=== PATIENT | male | born 1955 | race Hispanic/Latino ===

== ENCOUNTER 2020-05-16 08:30 | Emergency (ER) | payer SELFPAY ==
[2020-05-16] MEDS ORDERED: Acetaminophen 500 MG TAB ONE (08:55)
[2020-05-16 09:24] LABS: #Eosinphils 0.1 thou/uL (0.0-0.7); #Lymphocytes 1.9 thou/uL (1.20-3.40); #Monocytes 0.9 thou/uL (0.11-0.59); #Neutrophils 8.1 thou/uL (1.40-6.50); %Basophils 0.4 % (0.0-1.0); %Eosinophils 0.9 % (0.0-10.0); %Lymphocytes 17.3 % (21.0-51.0); %Neutrophils 73.5 % (42.0-75.0); Hemoglobin 15.1 g/dL (14.0-18.0); Mean Corpuscular HGB CONC 33.9 g/dL (32.0-36.0); Mean Corpuscular Volume 91.3 fL (78.0-98.0); Mean Platelet Volume 9.3 fL (7.4-10.4); Platelet Count 231 thou/uL (130-400); RBC Distribution Width 11.4 % (11.5-14.5); Red Blood Cell (RBC) Count 4.88 mill/uL (4.70-6.10)
[2020-05-16 09:49] LABS: ALT (SGPT) 12 U/L (8-55); AST (SGOT) 11 U/L (5-34); Albumin 4.1 g/dL (3.4-4.8); Alkaline Phosphatase 115 U/L (40-110); Anion Gap 12 mmol/L (10-20); BUN (Urea Nitrogen) 10 mg/dL (8.4-25.7); Bilirubin, Total 0.4 mg/dL (0.2-1.2); Calc. Creatinine Clearance 0 mL/min (70-130); Carbon Dioxide 25 mmol/L (23-31); Chloride 98 mmol/L (98-107); Estimated GFR-MDRD Greater than 90; Glucose 260 mg/dL (80-115); Lipase 162 U/L (8-78); Potassium 4.2 mmol/L (3.5-5.1); Protein, Total 7.1 g/dL (5.8-8.1); Sodium 131 mmol/L (136-145)
--- NOTE | 2020-05-16 10:26 | CT ---
CT ABDOMEN AND PELVIS WITH IV CONTRAST: INDICATION: Abdominal pain. FINDINGS: Lung bases clear. Liver and spleen appear unremarkable. Pancreas is unremarkable. Stomach and duodenum unremarkable. Adrenal glands normal. Kidneys unremarkable. Small bowel loops show nonspecific distention. The mid and distal small bowel shows mild fluid-fille d distention without dilatation. Appendix appears normal. The colon is unremarkable with moderate v olume stool throughout the colon. The aorta shows atherosclerotic changes without aneurysm. Images through the pelvis show mild prosta tic hypertrophy. No mass or adenopathy. Osseous structures unremarkable with degenerative spine john nges. Small umbilical hernia. IMPRESSION: Nonspecific fluid-filled distention of mid and distal small bowel loops without evidence of dilatatio n or obstruction. No acute intraabdominal process identified. POS: AGW
[2020-05-16 10:57] LABS: Bacteria/HPF None Seen HPF (None Seen); Bilirubin Negative (Negative); Blood, Urine Negative (Negative); Clarity Clear (Clear); Glucose, Urine (Dipstick) Greater than 1000 mg/dL (Negative); Ketone, Urine Negative (Negative); Leukocyte Negative Leu/uL (Negative); Mucous/LPF Rare LPF (<2+); Nitrite Negative (Negative); Protein, Urine (Dipstick) 30 mg/dL (Neg-Trace); RBC/HPF 0-3 HPF (0-3); Specific Gravity, Urine 1.034 (1.002-1.036); Squamous Epithelial 0-3 HPF (0-3); WBC/HPF 0-3 HPF (0-3)
[2020-05-16] MEDS ORDERED: Iopamidol 370 76% 100 ML VIAL ONE (16:11)
--- NOTE | 2020-05-19 12:54 | EKG ---
Test Reason : Blood Pressure : / mmHG Vent. Rate : 075 BPM Atrial Rate : 075 BPM P-R Int : 142 ms QRS Dur : 084 ms QT Int : 376 ms P-R-T Axes : 038 -61 018 degrees QTc Int : 419 ms Normal sinus rhythm Pulmonary disease pattern Left anterior fascicular block Abnormal ECG Confirmed by JENNIFER VALDEZ ([id number]), fan mail editor PÉREZ FERREIRA ([id number]) on 05/19/2020 12:54:05 PM Referred By: Confirmed By:JENNIFER Lyons
== END 2020-05-16 12:19 | disposition home or self-care (01) ==
LOC: ERS 08:30
DX: R10.11 Right upper quadrant pain (principal); R10.31 Right lower quadrant pain; E11.9 Type 2 diabetes mellitus without complications; E03.9 Hypothyroidism, unspecified; F17.200 Nicotine dependence, unspecified, uncomplicated; Z79.899 Other long term (current) drug therapy; Z79.84 Long term (current) use of oral hypoglycemic drugs
CPT/HCPCS: 36416; 74177; 80053; 81003; 81015; 83690; 84484; 85025; 93005; 96360; 96361; Q9967

== ENCOUNTER 2025-04-03 10:06 | Inpatient (IN) | payer MEDICARE, OTHER, SELFPAY ==
[2025-04-03 12:35] LABS: #Basophils Less than 0.03 10x3/uL (0.0-0.2); #Eosinophils 0.07 10x3/uL (0.0-0.7); #Monocytes 0.99 10x3/uL (0.11-0.59); #Neutrophils 9.36 10x3/uL (1.40-6.50); %Basophils 0.2 % (0.0-1.0); %Eosinophils 0.6 % (0.0-10.0); %Lymphocytes 17.0 % (21.0-51.0); %Monocytes 7.8 % (0.0-10.0); %Neutrophils 74.2 % (42.0-75.0); Hematocrit 32.9 % (42.0-52.0); Hemoglobin 11.3 g/dL (14.0-18.0); Mean Corpuscular Hemoglobin 29.4 pg (27.0-31.0); Mean Corpuscular Volume 85.5 fL (78.0-98.0); Platelet Count 427 10x3/uL (130-400); Red Blood Cell (RBC) Count 3.85 mill/uL (4.70-6.10); White Blood Cell (WBC) Count 12.62 10x3/uL (4.8-10.8)
[2025-04-03] MEDS ORDERED: Iopamidol-370 76% 500 ML MDV (1 ML CHARGE) ONE (12:55)
[2025-04-03 12:59] LABS: ALT (SGPT) 12 U/L (Less than 45); AST (SGOT) 20 U/L (11-34); Albumin 3.5 g/dL (3.1-4.5); Alkaline Phosphatase 101 U/L (40-110); Anion Gap 14 mmol/L (10-20); BUN (Urea Nitrogen) 10 mg/dL (8.4-25.7); Bilirubin, Total 0.3 mg/dL (0.3-1.2); Calc. Creatinine Clearance 0 mL/min (70-130); Calcium 9.4 mg/dL (7.8-10.44); Carbon Dioxide 26 mmol/L (23-31); Chloride 95 mmol/L (98-107); Globulin 4.4 g/dL (2.4-3.5); Glucose 248 mg/dL (80-115); Potassium 3.8 mmol/L (3.5-5.1); Sodium 131 mmol/L (136-145)
[2025-04-03] MEDS ORDERED: Ketorolac Tromethamine 30 MG (1 mL) VIAL ONE (14:59)
[2025-04-03] MEDS ORDERED: Vancomycin 1 GM/200 ML (FROZEN) BAG ONE (16:32)
[2025-04-03] MEDS ORDERED: Calcium Carbonate 500 MG ChewTAB PO PRN (22:07)
[2025-04-03] MEDS ORDERED: Ondansetron PF 4 MG/2 ML Vial IVP PRN (22:07)
[2025-04-03] MEDS ORDERED: Dextrose 50% Abboject 50 ML SYRINGE SLOW IVP PRN (22:08)
[2025-04-03] MEDS ORDERED: Glucagon 1 MG/ML KIT IM PRN (22:08)
[2025-04-03] MEDS ORDERED: Electrolyte Replacement Protocol 1 EACH FS PRN (22:15)
[2025-04-03 22:22] VITALS: BMI 26.6
[2025-04-03] MEDS: Acetaminophen 325 MG TAB PO PRN (23:45)
[2025-04-04] MEDS: Ketorolac Tromethamine 30 MG (1 mL) VIAL IVP PRN ×2 (03:46→17:33)
[2025-04-04 06:03] LABS: #Basophils 0.05 10x3/uL (0.0-0.2); #Eosinophils 0.28 10x3/uL (0.0-0.7); #Monocytes 1.13 10x3/uL (0.11-0.59); #Neutrophils 7.91 10x3/uL (1.40-6.50); %Basophils 0.4 % (0.0-1.0); %Eosinophils 2.4 % (0.0-10.0); %Lymphocytes 18.9 % (21.0-51.0); %Monocytes 9.7 % (0.0-10.0); %Neutrophils 68.3 % (42.0-75.0); Hematocrit 29.8 % (42.0-52.0); Hemoglobin 10.2 g/dL (14.0-18.0); Mean Corpuscular Hemoglobin 28.8 pg (27.0-31.0); Mean Corpuscular Volume 84.2 fL (78.0-98.0); Platelet Count 389 10x3/uL (130-400); Red Blood Cell (RBC) Count 3.54 mill/uL (4.70-6.10); White Blood Cell (WBC) Count 11.59 10x3/uL (4.8-10.8)
[2025-04-04 06:09] LABS: ALT (SGPT) 12 U/L (Less than 45); AST (SGOT) 19 U/L (11-34); Albumin 3.1 g/dL (3.1-4.5); Alkaline Phosphatase 88 U/L (40-110); Anion Gap 11 mmol/L (10-20); BUN (Urea Nitrogen) 10 mg/dL (8.4-25.7); Bilirubin, Total 0.2 mg/dL (0.3-1.2); Calc. Creatinine Clearance 110 mL/min (70-130); Calcium 9.0 mg/dL (7.8-10.44); Carbon Dioxide 27 mmol/L (23-31); Chloride 97 mmol/L (98-107); Globulin 3.7 g/dL (2.4-3.5); Glucose 156 mg/dL (80-115); Potassium 3.4 mmol/L (3.5-5.1); Sodium 132 mmol/L (136-145)
[2025-04-04 06:24] LABS: Free T4 (Free Thyroxine) 1.09 ng/dL (0.70-1.48); Thyroid Stimulating Hormone 1.0421 uIU/mL (0.35-4.94)
[2025-04-04] MEDS: HYDROcodone/Acetaminophen 5/325 mg Tablet PO PRN (12:35)
[2025-04-04] MEDS: Artificial Tear Ophth Sol 15 ML BOT EA EYE PRN (17:26)
[2025-04-04] MEDS: Gabapentin 300 MG CAP PO SCH (20:56)
[2025-04-05 07:10] LABS: Anion Gap 14 mmol/L (10-20); BUN (Urea Nitrogen) 13 mg/dL (8.4-25.7); Calc. Creatinine Clearance 94 mL/min (70-130); Calcium 9.4 mg/dL (7.8-10.44); Carbon Dioxide 24 mmol/L (23-31); Chloride 96 mmol/L (98-107); Glucose 293 mg/dL (80-115); Potassium 4.6 mmol/L (3.5-5.1); Sodium 129 mmol/L (136-145)
[2025-04-05] MEDS ORDERED: OFLOXACIN R EAR SCH (09:00)
[2025-04-05] MEDS: Pantoprazole 40 MG DR.TAB PO SCH (09:07)
[2025-04-05] MEDS ORDERED: VANCOMYCIN IVPB PRN (11:34)
[2025-04-05] MEDS: VANCOMYCIN 1.75 GM/350 ML Premix BAG IVPB SCH (13:23)
[2025-04-05] MEDS: Insulin Glargine 30 UNITS/0.3 ML VIAL SC SCH (20:56)
[2025-04-05] MEDS: Vancomycin 1 GM in Premix 1 BAG IVPB SCH (22:44)
[2025-04-06 06:54] LABS: #Basophils Less than 0.03 10x3/uL (0.0-0.2); #Eosinophils Less than 0.03 10x3/uL (0.0-0.7); #Monocytes 0.39 10x3/uL (0.11-0.59); #Neutrophils 10.78 10x3/uL (1.40-6.50); %Basophils 0.1 % (0.0-1.0); %Eosinophils 0.0 % (0.0-10.0); %Lymphocytes 9.2 % (21.0-51.0); %Monocytes 3.2 % (0.0-10.0); %Neutrophils 87.0 % (42.0-75.0); Hematocrit 32.0 % (42.0-52.0); Hemoglobin 11.2 g/dL (14.0-18.0); Mean Corpuscular Hemoglobin 29.0 pg (27.0-31.0); Mean Corpuscular Volume 82.9 fL (78.0-98.0); Platelet Count 357 10x3/uL (130-400); Red Blood Cell (RBC) Count 3.86 mill/uL (4.70-6.10); Vancomycin, Random 16.0 ug/mL (See Comment); White Blood Cell (WBC) Count 12.38 10x3/uL (4.8-10.8)
[2025-04-06 07:07] LABS: Anion Gap 15 mmol/L (10-20); BUN (Urea Nitrogen) 16 mg/dL (8.4-25.7); Calc. Creatinine Clearance 89 mL/min (70-130); Calcium 9.0 mg/dL (7.8-10.44); Carbon Dioxide 20 mmol/L (23-31); Chloride 96 mmol/L (98-107); Glucose 319 mg/dL (80-115); Potassium 4.4 mmol/L (3.5-5.1); Sodium 127 mmol/L (136-145)
[2025-04-06] MEDS: Insulin Glargine 30 UNITS/0.3 ML VIAL SC SCH (08:06)
[2025-04-06 08:16] VITALS: BP 173/96; TEMP 97.4
== END 2025-04-06 11:55 | disposition home or self-care (01) | DRG 153 ==
LOC: ERS 10:06 → T4-A 21:06
PROVIDERS: ADMIT Student in an Organized Health Care Education/Training Program; ATTEND Family Medicine
DX: H70.11 Chronic mastoiditis, right ear (principal); E11.65 Type 2 diabetes mellitus with hyperglycemia; F17.210 Nicotine dependence, cigarettes, uncomplicated; E89.0 Postprocedural hypothyroidism; Z98.890 Other specified postprocedural states; Z79.899 Other long term (current) drug therapy
CPT/HCPCS: 36415; 36416; 70450; 70487; 80048; 80053; 80202; 83036; 83605; 84439; 84443; 84481; 85025; 87040; 87149; 96365; 96366; 96375; J0295; J1815; J1885; J2543; J2919; J3373; J3375; Q9967